=== PATIENT | male | born 1960 | race Caucasian/White ===

== ENCOUNTER 2025-05-11 11:49 | Emergency (ER) | payer MEDICAID ==
[~2025-05-11] VITALS: Ht 167.6 cm; Wt 79.4 kg
[2025-05-11] MEDS ORDERED: Ketorolac Tromethamine 15mg Vial IV ONE (12:05)
[2025-05-11 12:26] LABS: BASOPHILS ABSOLUTE AUTO 0.02 K/mm3 (0.00-0.23); BASOPHILS PERCENT AUTO 0 % (0-2); EOSINOPHILS ABSOLUTE AUTO 0.07 K/mm3 (0.00-0.68); EOSINOPHILS PERCENT AUTO 1 % (0-6); Hematocrit 42.1 % (37.0-53.0); Hemoglobin 13.6 g/dL (13.5-17.5); IMMATURE GRAN ABSOLUTE AUTO 0.01 K/mm3 (0.00-0.10); IMMATURE GRAN PERCENT AUTO 0 % (0-1); LYMPHOCYTES ABSOLUTE AUTO 1.69 K/mm3 (0.84-5.20); LYMPHOCYTES PERCENT AUTO 28 % (21-46); MONOCYTES ABSOLUTE AUTO 0.47 K/mm3 (0.16-1.47); MONOCYTES PERCENT AUTO 8 % (4-13); Mean Corpuscular HGB 28.9 pg (26.0-34.0); Mean Corpuscular HGB Conc 32.3 g/dL (31.5-36.5); Mean Corpuscular Volume 90 fL (80-100); Mean Platelet Volume 8.6 fL (9.1-12.4); NEUTROPHILS PERCENT AUTO 62 % (41-73); Platelet Count 280 K/mm3 (150-400); RDW Coefficient Variation 13.7 % (11.7-14.2); RDW Standard Deviation 45.1 fL (35.1-46.3); White Blood Cell Count 5.96 K/mm3 (4.00-11.30)
[2025-05-11 12:49] LABS: Source, Urine Clean Catch
[2025-05-11 12:59] LABS: Appearance, Urine Turbid (Clear); Bilirubin, Urine Neg (Neg); Blood, Urine 5+ (Neg); Color, Urine Brown (P-Yellow); Glucose Qualitative, Urine Neg (Neg); Ketones, Urine Neg (Neg); Leukocyte Esterase, Urine 3+ (Neg); Nitrite, Urine Pos (Neg); Protein, Urine 4+ (Neg); Urobilinogen, Urine 1+ (Normal)
[2025-05-11 13:04] LABS: Albumin, Blood 3.7 g/dL (3.4-5.0); Albumin/Globulin Ratio 1.2 (0.8-1.8); Bilirubin, Total 0.6 mg/dL (0.1-1.0); Bun/Creatinine Ratio 18.9 (12.0-20.0); Calcium, Blood 9.2 mg/dL (8.5-10.1); Creatinine, Blood 0.79 mg/dL (0.60-1.20); Globulin, Blood 3.2 g/dL (2.2-4.0); Total Protein, Blood 6.9 g/dL (6.4-8.2)
[2025-05-11 13:06] LABS: Bacteria Many /hpf; Red Blood Cells, Urine TNTC /hpf (0-2); Squamous Epithelial Cells Few /hpf (Few); White Blood Cells, Urine TNTC /hpf (0-5)
[2025-05-11 13:07] LABS: Calcium Oxalate Crystals Rare /hpf
[2025-05-11] MEDS ORDERED: CefTRIAXone Sodium 1,000 MG in NS 100 ML IV ONE (13:45)
[2025-05-11] MEDS ORDERED: NS 1,000 ML IV SCH (13:45)
[2025-05-11] MEDS ORDERED: CEFD300 PO (14:39)
== END 2025-05-11 15:06 | disposition home or self-care (01) ==
LOC: ER 11:49
PROVIDERS: Physician Assistant
DX: N39.0 Urinary tract infection, site not specified (principal); Z87.442 Personal history of urinary calculi; Z88.0 Allergy status to penicillin; Z59.89 Other problems related to housing and economic circumstances
CPT/HCPCS: 74177; 80053; 81001; 83690; 85025; 87086; 96365-59; 96375; 99284-25; J0696; J1885; J7030; Q9967

== ENCOUNTER 2025-10-28 12:03 | Inpatient (IN) | payer MEDICARE, MEDICAID ==
[~2025-10-28] VITALS: Ht 167.6 cm; Wt 78.0 kg
[~2025-10-28 12:03] MED LIST: CEFD300 PO
[2025-10-28 12:34] LABS: Source, Urine Clean Catch
[2025-10-28 12:39] LABS: BASOPHILS ABSOLUTE AUTO 0.02 K/mm3 (0.00-0.23); BASOPHILS PERCENT AUTO 0 % (0-2); EOSINOPHILS ABSOLUTE AUTO 0.09 K/mm3 (0.00-0.68); EOSINOPHILS PERCENT AUTO 2 % (0-6); Hematocrit 39.7 % (37.0-53.0); Hemoglobin 12.7 g/dL (13.5-17.5); IMMATURE GRAN ABSOLUTE AUTO 0.04 K/mm3 (0.00-0.10); IMMATURE GRAN PERCENT AUTO 1 % (0-1); LYMPHOCYTES ABSOLUTE AUTO 0.99 K/mm3 (0.84-5.20); LYMPHOCYTES PERCENT AUTO 18 % (21-46); MONOCYTES ABSOLUTE AUTO 0.52 K/mm3 (0.16-1.47); MONOCYTES PERCENT AUTO 9 % (4-13); Mean Corpuscular HGB Conc 32.0 g/dL (31.5-36.5); Mean Corpuscular Volume 89 fL (80-100); NEUTROPHILS ABSOLUTE AUTO 3.92 K/mm3 (1.96-9.15); NEUTROPHILS PERCENT AUTO 70 % (41-73); NRBC ABSOLUTE 0.00 K/mm3 (0.00-0.02); NRBC Auto 0.0 /100 WBC (0.0-0.2); Platelet Count 400 K/mm3 (150-400); RDW Coefficient Variation 13.6 % (11.7-14.2); RDW Standard Deviation 44.4 fL (35.1-46.3)
[2025-10-28 12:46] LABS: Bilirubin, Urine Neg (Neg); Color, Urine Yellow (P-Yellow); Glucose Qualitative, Urine Neg (Neg); Ketones, Urine Neg (Neg); Leukocyte Esterase, Urine 3+ (Neg); Protein, Urine 2+ (Neg); Specific Gravity, Urine 1.010 (1.003-1.022); Urobilinogen, Urine NORM (Normal)
[2025-10-28 12:56] LABS: Alanine Aminotransfer (ALT/SGP 32.0 U/L (12-78); Albumin, Blood 2.5 g/dL (3.4-5.0); Albumin/Globulin Ratio 0.6 (0.8-1.8); Anion Gap 9.0 mmol/L (3-11); Aspartate Aminotrans (AST/SGOT 18.0 U/L (12-37); Bilirubin, Total 0.3 mg/dL (0.1-1.0); Blood Urea Nitrogen 16.0 mg/dL (8-24); CO2, Blood 28.0 mmol/L (21-32); Calcium, Blood 8.8 mg/dL (8.5-10.1); Chloride, Blood 107.0 mmol/L (98-108); Creatinine, Blood 0.71 mg/dL (0.60-1.20); Globulin, Blood 4.3 g/dL (2.2-4.0); Glucose, Blood 146.0 mg/dL (70-99); Potassium, Blood 4.0 mmol/L (3.5-5.5); Sodium, Blood 140.0 mmol/L (136-145); Total Protein, Blood 6.8 g/dL (6.4-8.2)
[2025-10-28] MEDS ORDERED: Ketorolac Tromethamine 30mg Vial IV ONE (13:00)
[2025-10-28 13:03] LABS: White Blood Cells, Urine TNTC /hpf (0-5)
[2025-10-28] MEDS ORDERED: CefTRIAXone Sodium 1,000 MG in NS 50 ML IV ONE (14:15)
[2025-10-28] MEDS ORDERED: HYDROmorphone HCl/Pf 1MG SYR IV ONE (14:20)
[2025-10-28] MEDS ORDERED: Magnesium Hydroxide Conc 10 ML UDC PO PRN (16:35)
[2025-10-28] MEDS ORDERED: Ketorolac Tromethamine 15mg Vial IV PRN (16:40)
[2025-10-28] MEDS ORDERED: FLU VACC TS2025(65UP)/MF59C/PF 45 MCG/0.5 ML SYRINGE IM SCH (16:40)
[2025-10-28] MEDS ORDERED: Piperacillin/Tazobactam Sod 3.375 GM in NS 100 ML IV SCH (18:00)
[2025-10-28 18:49] VITALS: BP 110/59
[2025-10-28] MEDS ORDERED: NS 250 ML IV PRN (18:55)
[2025-10-28] MEDS ORDERED: Lactobacil 2-S.Thermo-Bifido 1 1 Cap PO SCH (21:00)
--- NOTE | 2025-10-28 22:51 | NUR ---
ADMIT NOTE PT ADMIT FROM ED FOR PYELONEPHRITIS. ORIENTED TO ROOM, CALL LIGHT, AND SAFETY/FALL PRECAUTIONS. PT A&OX4, VSS. ABLE TO COMMUNICATE NEEDS APPROPRIATELY. UP INTERMITTENTLY TO USE RESTROOM INDEPENDENTLY. TORADOL ADMIN X 1 FOR 6/10 ABD PAIN. BED RAILS UP X 2, BED IN LOWEST POSITION, BED WHEELS LOCKED, PERSONAL BELONGINGS AND CALL LIGHT WITHIN REACH FOR SAFETY.
[2025-10-29] MEDS ORDERED: FentaNYL Citrate 50 MCG/ML 2 ML Injection IV PRN (01:55)
[2025-10-29 03:58] VITALS: BP 119/49
--- NOTE | 2025-10-29 05:32 | NUR ---
INTERVENTION ANALYST SUMMARY PT A&OX4, VSS. ABLE TO COMMUNICATE NEEDS APPROPRIATELY. PT HAS BEEN ASLEEP FOR MOST OF THE SHIFT SINCE ADMISSION. CHEST RISE/RESPIRATIONS NOTED. TORADOL AND FENTANYL ADMIN X 1 EACH FOR PAIN W/ GOOD EFFECT. CONTINUING TO RECEIVE ZOSYN Q6. BED RAILS UP X 2, BED IN LOWEST POSITION, BED WHEELS LOCKED, PERSONAL BELONGINGS AND CALL LIGHT WITHIN REACH FOR SAFETY.
[2025-10-29 05:40] LABS: BASOPHILS ABSOLUTE AUTO 0.01 K/mm3 (0.00-0.23); BASOPHILS PERCENT AUTO 0 % (0-2); EOSINOPHILS ABSOLUTE AUTO 0.15 K/mm3 (0.00-0.68); EOSINOPHILS PERCENT AUTO 3 % (0-6); Hematocrit 32.6 % (37.0-53.0); Hemoglobin 10.4 g/dL (13.5-17.5); IMMATURE GRAN ABSOLUTE AUTO 0.06 K/mm3 (0.00-0.10); IMMATURE GRAN PERCENT AUTO 1 % (0-1); LYMPHOCYTES ABSOLUTE AUTO 1.44 K/mm3 (0.84-5.20); LYMPHOCYTES PERCENT AUTO 29 % (21-46); MONOCYTES ABSOLUTE AUTO 0.50 K/mm3 (0.16-1.47); MONOCYTES PERCENT AUTO 10 % (4-13); Mean Corpuscular HGB Conc 31.9 g/dL (31.5-36.5); Mean Corpuscular Volume 90 fL (80-100); NEUTROPHILS ABSOLUTE AUTO 2.76 K/mm3 (1.96-9.15); NEUTROPHILS PERCENT AUTO 56 % (41-73); NRBC ABSOLUTE 0.00 K/mm3 (0.00-0.02); NRBC Auto 0.0 /100 WBC (0.0-0.2); Platelet Count 298 K/mm3 (150-400); RDW Coefficient Variation 13.6 % (11.7-14.2); RDW Standard Deviation 45.8 fL (35.1-46.3)
[2025-10-29 06:10] LABS: Alanine Aminotransfer (ALT/SGP 33.0 U/L (12-78); Albumin, Blood 2.1 g/dL (3.4-5.0); Albumin/Globulin Ratio 0.6 (0.8-1.8); Anion Gap 9.0 mmol/L (3-11); Aspartate Aminotrans (AST/SGOT 28.0 U/L (12-37); Bilirubin, Total 0.2 mg/dL (0.1-1.0); Blood Urea Nitrogen 23.0 mg/dL (8-24); CO2, Blood 25.0 mmol/L (21-32); Calcium, Blood 8.5 mg/dL (8.5-10.1); Chloride, Blood 106.0 mmol/L (98-108); Creatinine, Blood 0.83 mg/dL (0.60-1.20); Globulin, Blood 3.3 g/dL (2.2-4.0); Glucose, Blood 102.0 mg/dL (70-99); Potassium, Blood 4.1 mmol/L (3.5-5.5); Sodium, Blood 136.0 mmol/L (136-145); Total Protein, Blood 5.4 g/dL (6.4-8.2)
[2025-10-29 07:25] VITALS: BP 117/67
[2025-10-29] MEDS ORDERED: Enoxaparin 40 MG/0.4 ML SYR SC SCH (09:00)
[2025-10-29 09:08] VITALS: BP 187/88
[2025-10-29 09:22] VITALS: BP 125/66
[2025-10-29 10:56] LABS: U Amphetamine Screen DETECTED; U Barbiturate Screen Not Detected; U Benzodiazapine Screen Not Detected; U Buprenorphine Screen Not Detected; U Cannabinoids Screen DETECTED; U Cocaine Screen Not Detected; U Methadone Screen Not Detected; U Methamphetamine Screen DETECTED; U Opiates Screen Not Detected; U Oxycodone Screen Not Detected; U Phencyclidine Screen Not Detected
[2025-10-29 14:17] LABS: Hematocrit 33.7 % (37.0-53.0); Hemoglobin 10.8 g/dL (13.5-17.5)
[2025-10-29 15:13] VITALS: BP 122/67
[2025-10-29 19:21] VITALS: BP 119/69
--- NOTE | 2025-10-29 20:13 | NUR ---
SHIFT SUMMARY- PT HAS HAD ACUTE CHANGES TODAY. THIS AM ON ASSESSMENT HE ATTEMPTED TO GET OOB AND HE HAD SOME DIZZINESS. BED ALARM SET AND HE WAS ASKED TO CALL FOR ASSISTANCE. DR CAME TO SEE THE PT, BED ALARM TURNED OFF SO DR CAN GET TO THE EOB FOR THE DR TO LISTEN TO HIS LUNGS. PT C/O EXTREME PAIN IN THE RIGHT FLANK AT THE TIME OF MD ASSESSMENT. RN WENT TO GET PAIN MED. PT GOT UP TO GO TO THE BATHROOM, HE IS BLIND IN THE RIGHT EYE AND HAS BLURRED VISION IN THE LEFT EYE. PT LEFT PUPIL IS FIXED AND DILATED AND MISSHAPEN, HE STATES HE HAS SEVERE LIGHT SENSITIVITY. HE TRIPPED OVER THE TRASH CAN AND ATTEMPTED TO [place] IT AND HE STUMBLED, BUT CAUGHT HIMSELF. THIS RN CAME TO THE DOOR AND INSTRUCTED THE PT TO SIT DOWN. HE KNELT ON THE FLOOR. ONCE THIS RN WAS NEXT TO HIM HE WAS ABLE TO GET HIMSELF UP INTO THE BED. PT WAS PALE, DIAPHORETIC, SHAKEY AND TACHYPNEIC. DR AT THE BEDSIDE AT THE TIME OF THE EVENT, PUPILS NOTED, RIGHT IS REACTIVE PT CONFIRMS NO VISION ON THE RIGHT. CT ORDERED TO R/O STROKE PT TAKEN TO CT, EKG COMPLETED AND TOX SCREEN ORDERED. ONCE CT RESULT WAS IN THE PT WAS MEDICATED WITH TORADOL. MED WAS HELD PER MD UNTIL HEMMORRHAGE WAS R/O. AFTER THE MED THE PT WAS ABLE TO RELAX AND REST FOR SEVERAL HOURS, HE APPEARS A LITTLE BETTER IN THE AFTERNOON, MD AWARE OF TOX SCREEN RESULT. BEDSIDE REPORT COMPLETED WITH NIGHT RN. NO S&S OF DISTRESS NOTED AT THE TIME OF REPORT.
[2025-10-30 03:55] VITALS: BP 115/66
[2025-10-30 05:32] LABS: BASOPHILS ABSOLUTE AUTO 0.02 K/mm3 (0.00-0.23); BASOPHILS PERCENT AUTO 0 % (0-2); EOSINOPHILS ABSOLUTE AUTO 0.11 K/mm3 (0.00-0.68); EOSINOPHILS PERCENT AUTO 2 % (0-6); Hematocrit 35.0 % (37.0-53.0); Hemoglobin 11.2 g/dL (13.5-17.5); IMMATURE GRAN ABSOLUTE AUTO 0.07 K/mm3 (0.00-0.10); IMMATURE GRAN PERCENT AUTO 1 % (0-1); LYMPHOCYTES ABSOLUTE AUTO 1.41 K/mm3 (0.84-5.20); LYMPHOCYTES PERCENT AUTO 26 % (21-46); MONOCYTES ABSOLUTE AUTO 0.40 K/mm3 (0.16-1.47); MONOCYTES PERCENT AUTO 7 % (4-13); Mean Corpuscular HGB Conc 32.0 g/dL (31.5-36.5); Mean Corpuscular Volume 91 fL (80-100); NEUTROPHILS ABSOLUTE AUTO 3.51 K/mm3 (1.96-9.15); NEUTROPHILS PERCENT AUTO 64 % (41-73); NRBC ABSOLUTE 0.00 K/mm3 (0.00-0.02); NRBC Auto 0.0 /100 WBC (0.0-0.2); Platelet Count 385 K/mm3 (150-400); RDW Coefficient Variation 13.7 % (11.7-14.2); RDW Standard Deviation 45.6 fL (35.1-46.3)
--- NOTE | 2025-10-30 05:46 | NUR ---
SHIFT SUMMARY: Pt is admitted for pyelonephritis and is a full code. Is alert and able to make needs known. ADLs have been SBA. pain had been managed with PRN medications. Has expressed his intent to go AMA on dayshift.
[2025-10-30 06:11] LABS: Alanine Aminotransfer (ALT/SGP 29.0 U/L (12-78); Albumin, Blood 2.2 g/dL (3.4-5.0); Albumin/Globulin Ratio 0.7 (0.8-1.8); Anion Gap 6.0 mmol/L (3-11); Aspartate Aminotrans (AST/SGOT 16.0 U/L (12-37); Bilirubin, Total 0.2 mg/dL (0.1-1.0); Blood Urea Nitrogen 22.0 mg/dL (8-24); CO2, Blood 27.0 mmol/L (21-32); Calcium, Blood 8.4 mg/dL (8.5-10.1); Chloride, Blood 108.0 mmol/L (98-108); Creatinine, Blood 0.89 mg/dL (0.60-1.20); Globulin, Blood 3.3 g/dL (2.2-4.0); Glucose, Blood 105.0 mg/dL (70-99); Magnesium, Blood 2.1 mg/dL (1.6-2.4); Potassium, Blood 4.4 mmol/L (3.5-5.5); Sodium, Blood 137.0 mmol/L (136-145); Total Protein, Blood 5.5 g/dL (6.4-8.2)
[2025-10-30 07:23] VITALS: BP 116/77
[2025-10-30] MEDS ORDERED: HYDROcodone 5-APAP 325 TAB PO PRN (12:00)
[2025-10-30] MEDS ORDERED: Ketorolac Tromethamine 15mg Vial IV PRN (12:05)
[2025-10-30] MEDS ORDERED: OxyCODONE 5 mg/Acetamin 325 mg TABLET PO PRN (13:45)
--- NOTE | 2025-10-30 18:28 | NUR ---
SHIFT SUMMARY- PT ALERT, ORIENTED AND INDEPENDENT IN HIS ROOM. HE HAS HAD PAIN ALL DAY, NORCO WAS GIVEN WITH NO EFFECT, IV TORADOL WAS GIVEN AND THE PT TOOK A NAP FOR ONE HOUR BUT WOKE PAINFUL, CHANGED NORCO TO PERCOCET. PT RECIEVED TWO TABS, ON THE FOLLOW UP HE STATED, "WHATEVER THAT MEDICINE WAS THAT YOU GAVE ME, THE PAIN IS GONE!" PT IS CURRENTLY SITTING UP IN A RECLINER WITH IV ABX INFUSING, IV WILL BE SL BY THE END OF SHIFT. NO CURRENT S&S OF DISTRESS NOTED. WILL PASS ON TO NIGHT RN IN BEDSIDE REPORT.
[2025-10-30 19:34] VITALS: BP 96/44
[2025-10-31 03:55] VITALS: BP 115/70
[2025-10-31 05:33] LABS: BASOPHILS ABSOLUTE AUTO 0.01 K/mm3 (0.00-0.23); BASOPHILS PERCENT AUTO 0 % (0-2); EOSINOPHILS ABSOLUTE AUTO 0.07 K/mm3 (0.00-0.68); EOSINOPHILS PERCENT AUTO 1 % (0-6); Hematocrit 33.5 % (37.0-53.0); Hemoglobin 10.6 g/dL (13.5-17.5); IMMATURE GRAN ABSOLUTE AUTO 0.09 K/mm3 (0.00-0.10); IMMATURE GRAN PERCENT AUTO 2 % (0-1); LYMPHOCYTES ABSOLUTE AUTO 1.84 K/mm3 (0.84-5.20); LYMPHOCYTES PERCENT AUTO 33 % (21-46); MONOCYTES ABSOLUTE AUTO 0.39 K/mm3 (0.16-1.47); MONOCYTES PERCENT AUTO 7 % (4-13); Mean Corpuscular HGB Conc 31.6 g/dL (31.5-36.5); Mean Corpuscular Volume 91 fL (80-100); NEUTROPHILS ABSOLUTE AUTO 3.20 K/mm3 (1.96-9.15); NEUTROPHILS PERCENT AUTO 57 % (41-73); NRBC ABSOLUTE 0.00 K/mm3 (0.00-0.02); NRBC Auto 0.0 /100 WBC (0.0-0.2); Platelet Count 364 K/mm3 (150-400); RDW Coefficient Variation 13.8 % (11.7-14.2); RDW Standard Deviation 46.5 fL (35.1-46.3)
[2025-10-31 06:01] LABS: Alanine Aminotransfer (ALT/SGP 27.0 U/L (12-78); Albumin, Blood 2.2 g/dL (3.4-5.0); Albumin/Globulin Ratio 0.7 (0.8-1.8); Anion Gap 7.0 mmol/L (3-11); Aspartate Aminotrans (AST/SGOT 16.0 U/L (12-37); Bilirubin, Total 0.2 mg/dL (0.1-1.0); Blood Urea Nitrogen 26.0 mg/dL (8-24); CO2, Blood 27.0 mmol/L (21-32); Calcium, Blood 8.3 mg/dL (8.5-10.1); Chloride, Blood 108.0 mmol/L (98-108); Creatinine, Blood 0.97 mg/dL (0.60-1.20); Globulin, Blood 3.3 g/dL (2.2-4.0); Glucose, Blood 101.0 mg/dL (70-99); Magnesium, Blood 2.1 mg/dL (1.6-2.4); Potassium, Blood 4.5 mmol/L (3.5-5.5); Sodium, Blood 137.0 mmol/L (136-145); Total Protein, Blood 5.5 g/dL (6.4-8.2)
--- NOTE | 2025-10-31 06:20 | NUR ---
SHIFT SUMMARY: Pt is admitted for pyelonephritis and is a full code. Is alert and able to make needs known. ADLs have been SBA. pain had been managed with PRN medications.
[2025-10-31 07:28] VITALS: BP 116/68
[2025-10-31] MEDS ORDERED: Polyethylene Glycol 3350 17 gm PO PRN (09:10)
[2025-10-31] MEDS ORDERED: Docusate Sodium/Senna 1 Tab PO PRN (09:10)
[2025-10-31] MEDS ORDERED: SENN187 PO (10:53)
[2025-10-31] MEDS ORDERED: Percocet 5-3251 EACH PO (10:54)
[2025-10-31] MEDS ORDERED: CIPR500 PO (10:55)
[2025-10-31] MEDS ORDERED: VSL#3 112.5B1 EACH PO (10:56)
--- NOTE | 2025-10-31 11:06 | NUR ---
1045 PT DECIDED IS GOING AMA, WANTS TO GO TO [place]. [facility]. CALLED DR TIRADO. IS OKAY TO DO DISCHARGE AND GIVE HARD SCRIPT FOR ABX AND PAIN MED. 1105 DISCHARGE REVIEWED WITH PT HE VERBALIZED UNDERSTANDING MEDS AND INST. IV PULLED BY AIDE. PT TOOK BOTH HARDSCRIPTS AND STATED WILL PUT IN WALLET. PT AMBULATED SELF TO DOOR AT 1105
--- NOTE | 2025-10-31 11:16 | NUR ---
SPOKE TO DR GAYLE PT STMT NO BM 9 DAYS. STATES ONLY SMALL PELLET THIS AM. DR ORDERED BOWEL CARE. ATTEMPTED TO GIVE TO PT. HE REFUSED. STATES GOING AMA. DISCUSSED GETTINGH ABX. PT TO WAIT FOR CALL TO BT X4 ABD IS FOFT AND NOT TENDER. AGAIN STATES NO BM. PT TO DISCHARGE OR AMA. PEND
== END 2025-10-31 11:43 | disposition home or self-care (01) | DRG 698 ==
LOC: ER 12:03 → MEDS 12:04
PROVIDERS: Student in an Organized Health Care Education/Training Program; ADMIT Internal Medicine
DX: T83.592A Infection and inflammatory reaction due to indwelling ureteral stent, initial encounter (principal); G92.8 Other toxic encephalopathy; N10 Acute pyelonephritis; Z59.01 Sheltered homelessness; F41.9 Anxiety disorder, unspecified; N48.89 Other specified disorders of penis; F10.90 Alcohol use, unspecified, uncomplicated; R73.03 Prediabetes; F17.210 Nicotine dependence, cigarettes, uncomplicated; R20.2 Paresthesia of skin; R51.9 Headache, unspecified; R25.1 Tremor, unspecified; M54.50 Low back pain, unspecified; Z87.442 Personal history of urinary calculi; Z96.0 Presence of urogenital implants; Z98.890 Other specified postprocedural states; Z88.0 Allergy status to penicillin; Y84.6 Urinary catheterization as the cause of abnormal reaction of the patient, or of later complication, without mention of misadventure at the time of the procedure
CPT/HCPCS: 36415; 70450; 74177; 80053; 81001; 82947; 83036; 83690; 83735; 85014; 85018; 85025; 87077; 87086; 87186; 93005; 93010; 96365-59; 96366; 96367; 96372; 96375; 96376; 99285-25; A9270; G0378; J0696; J1171; J1650; J1885; J2543; J3010; Q9967